=== PATIENT | male | born 1980 | race Caucasian/White ===

== ENCOUNTER 2023-08-25 11:59 | Observation (INO) | payer SELFPAY ==
[2023-08-25] VITALS (22 sets, daily range): BP systolic 84–117; BP diastolic 43–72; PULSE 65–83; RESP 14–20; TEMP 36.4–37; O2SAT 92–99; BMI 25.8
--- NOTE | 2023-08-25 12:24 | ED.GENADUL_ITS ---
Discharge Plan Disposition Patient Disposition: Admit to [facility] Condition: Stable Discharge Details Clinical Impression: Appendicitis Primary Care Provider: Sarah Beth Lisa ED Provider: Adriane Rueda Home Meds and New Rx's Prescriptions: No Action famotidine [Acid Controller] 20 mg tablet 20 mg PO DAILY HPI General Date/Time Provider Initiated Documentation: 08/25/23 12:14 . HPI Narrative: Tyler is a 43-year-old male who presents to the emergency department today for evaluation of abdominal pain. He reports he started with a burning/pressure pain in his epigastrium that woke him up in the melanite, has since migrated down to his lower abdomen/lower back, radiating into his right testicle. He has vomited once. He denies fever/chills, change in bowel movements, black/tarry stools, change in urine output (though urine is darker than usual), hematuria, penile discharge, swelling/pain in testicles. No history of abdominal surgery. He is a smoker, denies history of hypertension or cardiac disease. No recent sexual activity or new sexual partners. Related Data Home Medications Medication Instructions Recorded Confirmed famotidine 20 mg tablet (Acid 20 mg PO DAILY 08/25/23 08/25/23 Controller) Allergies Allergy/AdvReac Type Severity Reaction Status Date / Time bee venom protein (honey bee) Allergy Intermediate Hives Unverified 08/25/23 12:22 General Stated Complaint: Abd Prob JONAS: 3 Review of Systems Narrative: see HPI Exam Const General: cooperative GI Inspection: normal to inspection, no abdominal wall ecchymosis, non-distended, no visible herniation and no visible pulsation Palpation: soft, no hernias, no masses and tender in the RLQ and suprapubicly Auscultation: normal bowel sounds Male General Exam: Yes normal external exam, No ecchymosis, No edema, No erythema, No hernia, No inguinal lymphadenopathy, No lacerations, No lesions, No perineal induration and No tenderness Penis: normal penis Testes: normal, testicular lie normal, epididymides normal and not enlarged Course Vital Signs Vital signs: Vital Signs Temperature 37.0 C 08/25/23 12:04 Pulse 78 08/25/23 12:04 Respiratory Rate 18 08/25/23 12:04 Blood Pressure 117/72 08/25/23 12:04 Pulse Oximetry 99 08/25/23 12:04 Temperature 37.0 C 08/25/23 12:13 Temperature Source Skin 08/25/23 12:13 Pulse 78 08/25/23 12:13 Respiratory Rate 18 08/25/23 12:13 Respiratory Effort Normal 08/25/23 12:06 Blood Pressure 117/72 08/25/23 12:13 Blood Pressure Position Sitting 08/25/23 12:13 Pulse Oximetry 99 08/25/23 12:13 Oxygen Delivery Method Room Air 08/25/23 12:13 Oxygen Flow Rate 0 08/25/23 12:04 Medical Decision Making Tyler is a 43-year-old male who presents to the emergency department today for evaluation of abdominal pain. He reports he started with a burning/pressure pain in his epigastrium that woke him up in the melanite, has since migrated down to his lower abdomen/lower back, radiating into his right testicle. He has vomited once. He denies fever/chills, change in bowel movements, black/tarry stools, change in urine output (though urine is darker than usual), hematuria, penile discharge, swelling/pain in testicles. No history of abdominal surgery. He is a smoker, denies history of hypertension or cardiac disease. No recent sexual activity or new sexual partners. Physical exam remarkable for uncomfortable patient, writhing on stretcher during exam holding testicles. Abdomen is soft, nondistended, exquisitely tender to palpation in the right lower quadrant, with moderate tenderness to suprapubic area. No redness/swelling/pain with palpation of testicles. He reports testicles appear normal to him. Easy work of breathing, lung sounds clear bilaterally. Normal heart sounds. Moving all extremities equally. DDx includes but is not limited to: Appendicitis, diverticulitis, hernia, nephrolithiasis, cystitis, less likely testicular torsion based on abdominal tenderness with palpation rather than testicular pain I independently interpreted the following tests: CBC remarkable for leukocytosis with white cell count 18.38. CMP reassuring. UA unremarkable. CT abd/pelvis unremarkable for appendicitis, no abscess or free air. While in the emergency department Tyler received IV fluids, 0.5 mg Dilaudid for pain control, with good relief of pain. IV fluids going at 125 an hour for maintenance of hydration. Metronidazole and ceftriaxone given for appendicitis. Discussed case with Dr. Mckeon, [facility] general surgery; she has been to bedside to evaluate pt. Patient to be admitted for management of appendicitis via OR this afternoon. Imaging Data Radiologic Study: Radiologist's impression: Exam(s) CT ABDOMEN PELVIS W EXAM: CT ABDOMEN PELVIS W CLINICAL HISTORY: Abdominal pain, TTP RLQ, radiating to R testicle TECHNIQUE: Imaging Protocol: Axial computed tomography images with coronal and sagittal reformatted images were created and reviewed. CONTRAST MATERIAL: Intravenous: Omnipaque 350 Contrast volume:100 mL Oral: No COMPARISON: No exams were available for comparison FINDINGS: ABDOMEN: Lung Bases: Normal where visualized. Liver: Normal density. No measurable mass. Portal, Superior Mesenteric, and Splenic Veins: Unremarkable. Gallbladder and Biliary Tract: No radiodense calculus or dilation. Pancreas: Normal density, no abnormal calcifications or inflammatory process. Spleen: Normal. Adrenals: No masses seen. Kidneys: Normal size, contour and axis. There is a nonobstructing 2 mm stone in the lower pole of the left kidney. There is a simple cyst in the right kidney. No follow-up is recommended. Abdominal Aorta: Abdominal portion non-dilated. Atherosclerotic calcification is present. Bowel: No obstruction or bowel wall thickening. The appendix measures 1 cm in diameter with an enhancing wall. There is inflammation around the appendix. No evidence of an abscess or free air. No appendicoliths is present. The findings are consistent with acute appendicitis. Peritoneal Cavity: No ascites, collection or mesenteric inflammatory response. No free air. Lymph Nodes: Within normal limits. Bones: Within normal limits for the patient's age. Soft Tissues: Unremarkable. PELVIS: Bladder: Symmetric distention, no gross wall thickening. Reproductive Organs: Unremarkable as visualized. Lymph Nodes: Within normal limits. Bones: Within normal limits for the patient's age. IMPRESSION: 1. Findings of acute appendicitis. No abscess or free air. 2. Left nephrolithiasis. No obstructive uropathy. 3. Findings were discussed with Adriane Meek at 2:14 p.m. on 08/25/2023. Lab Data Labs: Laboratory Tests Range/Units 08/25/23 08/25/23 12:31 13:36 WBC (4.4-10.8) 10^3/uL 18.38 H RBC (4.36-5.78) 10^6/uL 5.06 Hgb (13.5-17.5) g/dL 15.4 Hct (40.0-50.0) % 43.1 MCV (80-95) fL 85 MCH (27.0-33.0) pg 30.4 MCHC (32.0-36.0) % 35.7 RDW (11.8-14.1) % 12.9 Plt Count (130-400) 10^3/uL 354 MPV (8.0-11.0) fL 9.0 Immature Gran % 0.5 Neutrophils % 82.5 Lymphocytes % 7.0 Monocytes % 9.4 Eosinophils % 0.2 Basophils % 0.4 Nucleated RBC % (0.0-0.3) % 0.0 Absolute Neutrophils (1.2-6.7) 10^3/uL 15.16 H Absolute Lymphocytes (1.2-3.4) 10^3/uL 1.29 Absolute Monocytes (0.1-0.8) 10^3/uL 1.73 H Absolute Eosinophils (0.0-0.7) 10^3/uL 0.04 Absolute Basophils (0.0-0.2) 10^3/uL 0.07 RBC Morphology Normal Sodium (136-145) mmol/L 139 Potassium (3.5-5.1) mmol/L 3.5 Chloride (98-107) mmol/L 102 Carbon Dioxide (21.0-32.0) mmol/L 28.1 Anion Gap (3-11) mmol/L 8.9 BUN (7-18) mg/dL 9 Creatinine (0.70-1.30) mg/dL 1.2 Est GFR (CKD-EPI 2020) (mL/min/1.73m2) 76.95 Glucose (74-106) mg/dL 121 H Calcium (8.5-10.1) mg/dL 9.5 Total Bilirubin (0.2-1.0) mg/dL 0.6 AST (15-37) U/L 15 ALT (16-63) U/L 29 Alkaline Phosphatase (46-116) U/L 68 Total Protein (6.4-8.2) g/dL 7.6 Albumin (3.4-5.0) g/dL 4.2 Urine Color (Yellow) Yellow Urine Clarity (Clear) Clear Urine pH (5-8) 8.5 H Ur Specific [place] (1.005-1.025) 1.015 Urine Protein (Neg-Trace) mg/dL Negative Urine Ketones (Negative) mg/dL Negative Urine Blood (Negative) Negative Urine Nitrite (Negative) Negative Urine Bilirubin (Negative) Negative Urine Urobilinogen (Up to 0.2) mg/dL 0.2 Ur Leukocyte Esterase (Negative) Negative Urine Glucose (Negative) mg/dL Negative Quality:SDOH Health Related Social Needs: No Data to Display PFSH All Active Problems (Updated 08/25/23 @ 15:06 by Adriane Harrell) Appendicitis (Acute) Social History Smoking/Tobacco Use Status: Current every day Tobacco Type: cigarettes Smoking risk assessment performed?: Yes Alcohol Intake: current Alcohol Intake frequency: a few times a month Substance use type: does not use
[2023-08-25 12:38] LABS: Abs Immature Grans 0.09 10^3/uL (0.0-0.06); Absolute Basophil Count 0.07 10^3/uL (0.0-0.2); Absolute Eosinophil Count 0.04 10^3/uL (0.0-0.7); Basophils % 0.4; Eosinophils % 0.2; HCT 43.1 % (40.0-50.0); HGB 15.4 g/dL (13.5-17.5); Immature Grans % 0.5; MCH 30.4 pg (27.0-33.0); MCHC 35.7 % (32.0-36.0); MCV 85 fL (80-95); Monocytes % 9.4; Neutrophils % 82.5; Platelet Count 354 10^3/uL (130-400); RBC 5.06 10^6/uL (4.36-5.78); RDW 12.9 % (11.8-14.1); RDW-SD 39.8 fL; WBC 18.38 10^3/uL (4.4-10.8)
[2023-08-25] MEDS: Normal Saline 1,000 ML 1000 ML IV (12:38)
[2023-08-25] MEDS: HYDROmorphone 2 MG/ML SYR 0.5 MG IVP ×2 (12:39→14:29)
[2023-08-25 12:40] LABS: Absolute Lymphocyte Count 1.29 10^3/uL (1.2-3.4); Absolute Monocyte Count 1.73 10^3/uL (0.1-0.8); Absolute Neutrophil Count 15.16 10^3/uL (1.2-6.7)
[2023-08-25 12:51] LABS: ALT 29 U/L (16-63); AST 15 U/L (15-37); Albumin 4.2 g/dL (3.4-5.0); Alkaline Phosphatase 68 U/L (46-116); Anion Gap 8.9 mmol/L (3-11); BUN 9 mg/dL (7-18); Bilirubin, Total 0.6 mg/dL (0.2-1.0); CO2 28.1 mmol/L (21.0-32.0); CREATININE 1.2 mg/dL (0.70-1.30); Calcium 9.5 mg/dL (8.5-10.1); Chloride 102 mmol/L (98-107); Estimated GFR 76.95 (mL/min/1.73m2); Glucose 121 mg/dL (74-106); Potassium 3.5 mmol/L (3.5-5.1); Sodium 139 mmol/L (136-145); Total Protein 7.6 g/dL (6.4-8.2)
[2023-08-25 12:52] LABS: Diff Comment Agrees w/ Instrument; RBC Morphology Normal
[2023-08-25 13:45] LABS: Bilirubin Negative (Negative); Blood Negative (Negative); Clarity Clear (Clear); Glucose Negative (Negative); Ketones Negative (Negative); Leukocyte Esterase Negative (Negative); Nitrite Negative (Negative); Specific Gravity 1.015 (1.005-1.025); Urobilinogen 0.2 mg/dL (Up to 0.2); pH 8.5 (5-8)
[2023-08-25] MEDS: Omnipaque 350 MG/ML 100 ML BTL IJ (13:51)
[2023-08-25] MEDS: Normal Saline - Diluent 50 ML VIAL IJ (13:52)
[2023-08-25] MEDS: Normal Saline Flush 10 ML SYR IVP ×2 (13:52→21:51)
--- NOTE | 2023-08-25 13:56 | DI.CT_ITS ---
Exam(s) CT ABDOMEN PELVIS W EXAM: CT ABDOMEN PELVIS W CLINICAL HISTORY: Abdominal pain, TTP RLQ, radiating to R testicle TECHNIQUE: Imaging Protocol: Axial computed tomography images with coronal and sagittal reformatted images were created and reviewed. CONTRAST MATERIAL: Intravenous: Omnipaque 350 Contrast volume:100 mL Oral: No COMPARISON: No exams were available for comparison FINDINGS: ABDOMEN: Lung Bases: Normal where visualized. Liver: Normal density. No measurable mass. Portal, Superior Mesenteric, and Splenic Veins: Unremarkable. Gallbladder and Biliary Tract: No radiodense calculus or dilation. Pancreas: Normal density, no abnormal calcifications or inflammatory process. Spleen: Normal. Adrenals: No masses seen. Kidneys: Normal size, contour and axis. There is a nonobstructing 2 mm stone in the lower pole of the left kidney. There is a simple cyst in the right kidney. No follow-up is recommended. Abdominal Aorta: Abdominal portion non-dilated. Atherosclerotic calcification is present. Bowel: No obstruction or bowel wall thickening. The appendix measures 1 cm in diameter with an enhanc ing wall. There is inflammation around the appendix. No evidence of an abscess or free air. No preeti endicoliths is present. The findings are consistent with acute appendicitis. Peritoneal Cavity: No ascites, collection or mesenteric inflammatory response. No free air. Lymph Nodes: Within normal limits. Bones: Within normal limits for the patient's age. Soft Tissues: Unremarkable. PELVIS: Bladder: Symmetric distention, no gross wall thickening. Reproductive Organs: Unremarkable as visualized. Lymph Nodes: Within normal limits. Bones: Within normal limits for the patient's age. IMPRESSION: 1. Findings of acute appendicitis. No abscess or free air. 2. Left nephrolithiasis. No obstructive uropathy. 3. Findings were discussed with Adriane Meek at 2:14 p.m. on 08/25/2023. RADIATION DOSE DELIVERED: 953.68mGy.cm Total DLP DATA REPOSITORY: All CT scans at this facility are submitted to the National Radiology Data Registry (NRDR) Dose Index Registry (DIR) with the [employer] (ACR). RADIATION OPTIMIZATION: All CT scans at this facility use at least one of these dose optimization te chniques: automated exposure control; mA and/or kV adjustment per patient size (includes targeted exa ms where dose is matched to clinical indication); or iterative reconstruction.
[2023-08-25] MEDS: cefTRIAXone 1 GM/50 ML BAG IVPB (14:31)
[2023-08-25] MEDS: metroNIDAZOLE 500 MG/100 ML BAG 100 MG IVPB ×2 (14:32→21:50)
--- NOTE | 2023-08-25 15:38 | ANES.PREOP_ITS ---
General Info Date of Service Date Performed: 08/25/23 Height: 5 ft 9 in Weight: 79.379 kg Body Mass Index (BMI): 25.8 Surgical Procedure: Operation Date: 08/25/23 16:10 Proposed Procedure Side Surgeon p Appendectomy Laparoscopic Licha Mckeon DO Meds Allergies and Home Medications Allergies Allergy/AdvReac Type Severity Reaction Status Date / Time bee venom protein (honey bee) Allergy Intermediate Hives Unverified 08/25/23 12:22 Home Medication Medication Instructions Recorded famotidine 20 mg tablet (Acid 20 mg PO DAILY 08/25/23 Controller) Current Visit Medications: Current Medications Generic Name Dose Route Start Last Admin Trade Name Freq PRN Reason Stop Dose Admin Hydromorphone HCl 0.5 mg 08/25/23 14:20 08/25/23 14:29 Hydromorphone 2 Mg/Ml Syr IVP 0.5 mg Q4H PRN PRN Administration Metronidazole 500 mg in 100 mls @ 100 mls/hr 08/25/23 14:30 08/25/23 14:32 Flagyl IVPB 100 mls/hr Q6H PHILLIP Administration Sodium Chloride 1,000 mls @ 125 mls/hr 08/25/23 14:30 Saline 1000ml Bag IV INFUSION PHILLIP IV Miscellaneous Supplies 1 each 08/25/23 12:30 Iv Access-Emergency Dept IV DIRECTED PHILLIP Iohexol 100 ml 08/25/23 14:00 08/25/23 13:51 Omnipaque 350 Mg/Ml 100 Ml Btl IJ 09/24/23 23:59 100 ml DIRECTED PHILLIP Administration Sodium Chloride 0 ml 08/25/23 12:21 08/25/23 13:52 Normal Saline Flush 10 Ml Syr IVP 10 ml PRN PRN Administration Sodium Chloride 0 ml 08/25/23 20:00 Normal Saline Flush 10 Ml Syr IVP BID PHILLIP Sodium Chloride 0 ml 08/25/23 12:21 Normal Saline 10 Ml Vial IJ DIRECTED PRN Sodium Chloride 50 ml 08/25/23 14:00 08/25/23 13:52 Normal Saline - Diluent 50 Ml Vial IJ 50 ml .FOR DI USE PHILLIP Administration PFSH Active Problems Active Problems: Problem Status Onset Code Appendicitis K37 Tobacco Smoking/Tobacco Use Status: Current every day Tobacco Type: cigarettes Alcohol Alcohol Intake: current Alcohol intake frequency: a few times a month Substance Use Substance use type: does not use Vital Signs and Lab Results Vital Signs Most Recent Vital Signs in EMR: Most Recent Vital Signs Temp Pulse Resp BP Pulse Ox 37.0 C 67 18 84/52 L 94 08/25/23 12:13 08/25/23 15:31 08/25/23 12:13 08/25/23 15:31 08/25/23 15:31 Lab Results 08/25/23 12:31 08/25/23 12:31 Blood Type / Crossmatch: 2 No Data to Display Complete Blood Count: 2 White Blood Count 18.38 10^3/uL (4.4-10.8) H 08/25/23 12:31 Red Blood Count 5.06 10^6/uL (4.36-5.78) 08/25/23 12:31 Hemoglobin 15.4 g/dL (13.5-17.5) 08/25/23 12:31 Hematocrit 43.1 % (40.0-50.0) 08/25/23 12:31 Platelet Count 354 10^3/uL (130-400) 08/25/23 12:31 Complete Metabolic Panel: 2 Sodium 139 mmol/L (136-145) 08/25/23 12:31 Potassium 3.5 mmol/L (3.5-5.1) 08/25/23 12:31 Chloride 102 mmol/L (98-107) 08/25/23 12:31 Carbon Dioxide 28.1 mmol/L (21.0-32.0) 08/25/23 12:31 BUN 9 mg/dL (7-18) 08/25/23 12:31 Creatinine 1.2 mg/dL (0.70-1.30) 08/25/23 12:31 Est GFR (CKD-EPI 2020) 76.95 (mL/min/1.73m2) 08/25/23 12:31 Calcium 9.5 mg/dL (8.5-10.1) 08/25/23 12:31 Albumin 4.2 g/dL (3.4-5.0) 08/25/23 12:31 Glucose 121 mg/dL (74-106) H 08/25/23 12:31 Liver Function Panel: 2 Alanine Aminotransferase (ALT/SGPT) 29 U/L (16-63) 08/25/23 12: 31 Aspartate Amino Transf (AST/SGOT) 15 U/L (15-37) 08/25/23 12:31 Coagulation Panel: 2 No Data to Display Cardiac Panel: 2 No Data to Display Arterial Blood Gas: 2 No Data to Display Venous Blood Gas: 2 No Data to Display Pancreas Panel: 2 No Data to Display Thyroid Panel: 2 No Data to Display Infectious Disease: 2 No Data to Display Blood Cultures: 2 No Data to Display Toxicology Panel: 2 No Data to Display Anesthesia Assessment and Plan Anesthesia History Personal History: No History of Anesthesia Complications Family History: No Family History of Anesthesia Complications Exercise Tolerance Exercise Tolerance: Metabolic Equivalents>4 Cardiac & Pulmonary Exam Cardiac Exam: Normal S1/S2 Heart Sounds Pulmonary Exam: Clear Bilateral Breath Sounds Implantable Cardiac Device Does patient have a Pacemaker or an ICD?: No Airway Exam Known Difficult Airway: No Mallampati Class: 4 Mouth Opening: Narrow (< 3cm) Thyromental Distance: Less than 3 cm Neck Range of Motion: Full ROM Neck Circumference: Normal Teeth Condition: Generalized Poor Dentition and Removable Dentures/Plates Upper ASA Classification ASA Score: ASA 2 Emergency Case?: Yes NPO Status NPO Status: NPO Clears >2 hours, Solids >8 hours Anesthesia Plan Resuscitation Status: Full Code Anesthesia Technique: General Anesthesia Airway Planned: Endotracheal Tube Monitors Used: Standard Monitors Preoperative Comments:: 43 yo male for lap appy. Currently in the ED, CT with acute appendicitis. Sig PMHx: GERD (on meds), smoker. Has received metronidazole/ceftriaxone/hydromorphone @ ~ 1430. Has not has acetaminophen or NSAIDS in 6 hrs.
--- NOTE | 2023-08-25 15:56 | W.PM.HP.N ---
Date of service: 08/25/23 Time of Service: 15:57 Assessment and Plan Assessment and plan (1) Appendicitis: Status: Acute Assessment and plan: 1. Patient history and physical examination are consistent with acute appendicitis. Currently the patient is hemodynamically stable. We discussed operative versus nonoperative options. The patient elected for laparoscopic appendectomy. The risk and benefits of procedure were explained to the patient. Informed consent was obtained and placed on the chart. Admit for observation Preoperative antibiotics Proceed to the OR for History of Present Illness History of Present Illness Chief Complaint: Abdominal pain Narrative: This patient is a pleasant 43-year-old male. He presents emergency department with complaints of acute onset of epigastric abdominal pain associated with nausea and vomiting. Patient states that the abdominal pain began in the middle the night. The patient notes that the pain has now localized to right lower quadrant. He confirms that in right emergency department the bumps in the road increase his pain. The patient denies any relieving factors. Last bowel movement was today. In the emergency department blood work demonstrated leukocytosis of 18,000. CT scan was highly suspicious for acute appendicitis. On physical examination the patient had exquisite tenderness with palpation and percussion in the right lower quadrant. Patient denies any prior abdominal surgeries. He denies using any blood thinners at home. He admits to half pack tobacco use daily for approximately 20 years. Review of Systems Constitutional Constitutional: Reports as per HPI, Reports lethargy and Reports malaise Gastrointestinal Gastrointestinal: Reports as per HPI, Reports abdominal pain and Reports vomiting PFSH All Active Problems Appendicitis (Acute) Social History Smoking/Tobacco Use Status: Current every day Tobacco Type: cigarettes Smoking risk assessment performed?: Yes Alcohol Intake: current Alcohol Intake frequency: a few times a month Substance use type: does not use Meds Allergies and Home Medications Allergies Allergy/AdvReac Type Severity Reaction Status Date / Time bee venom protein (honey bee) Allergy Intermediate Hives Unverified 08/25/23 12:22 Home Medications Medication Instructions Recorded Confirmed Type famotidine 20 mg tablet (Acid 20 mg PO DAILY 08/25/23 08/25/23 History Controller) Exam Const General: cooperative, healthy appearing and well developed Nutritional Appearance: average body habitus Orientation: alert, awake and oriented x3 Eyes General: appearance normal, both eyes and all related structures Sclera: sclerae normal Resp Effort & Inspection: normal respiratory effort and able to speak in complete sentences Auscultation: clear to auscultation bilaterally Cardio Rate: regular rate Heart Sounds: S1 normal and S2 normal GI Inspection: normal to inspection Palpation: soft and tender in the RLQ and with rebound tenderness Auscultation: hypoactive bowel sounds Skin Lesions: no lesions Rashes: no rashes Results Labs 08/25/23 12:31 08/25/23 12:31 Labs: Laboratory Results - last 24 hr 08/25/23 08/25/23 12:31 13:36 WBC 18.38 H RBC 5.06 Hgb 15.4 Hct 43.1 MCV 85 MCH 30.4 MCHC 35.7 RDW 12.9 Plt Count 354 MPV 9.0 Immature Gran % 0.5 Neutrophils % 82.5 Lymphocytes % 7.0 Monocytes % 9.4 Eosinophils % 0.2 Basophils % 0.4 Nucleated RBC % 0.0 Absolute Neutrophils 15.16 H Absolute Lymphocytes 1.29 Absolute Monocytes 1.73 H Absolute Eosinophils 0.04 Absolute Basophils 0.07 RBC Morphology Normal Sodium 139 Potassium 3.5 Chloride 102 Carbon Dioxide 28.1 Anion Gap 8.9 BUN 9 Creatinine 1.2 Est GFR (CKD-EPI 2020) 76.95 Glucose 121 H Calcium 9.5 Total Bilirubin 0.6 AST 15 ALT 29 Alkaline Phosphatase 68 Total Protein 7.6 Albumin 4.2 Urine Color Yellow Urine Clarity Clear Urine pH 8.5 H Ur Specific [place] 1.015 Urine Protein Negative Urine Ketones Negative Urine Blood Negative Urine Nitrite Negative Urine Bilirubin Negative Urine Urobilinogen 0.2 Ur Leukocyte Esterase Negative Urine Glucose Negative Last Vital Signs Temp 98.6 F 08/25/23 15:38 Pulse 69 08/25/23 15:47 Resp 18 08/25/23 15:38 BP 93/58 L 08/25/23 15:47 Pulse Ox 96 08/25/23 15:50 Time Spent Time spent with Patient: 40-54 minutes Time was spent: preparing to see the patient(eg.review tests), obtaining and/or reviewing separately otained hiistory, ordering medications,tests, procedures, referring, communicating with other health emergency care tech and counseling the patient
[2023-08-25] MEDS: Lactated Ringers 1,000 ML 30 ML IV (16:10)
[2023-08-25] MEDS: Enoxaparin 40 MG/0.4 ML SYR SC (16:35)
[2023-08-25] MEDS: Cellulose,Oxidized 4X8 1 PACKET MC (17:30)
[2023-08-25] MEDS: Bupivacaine 0.25% Pres-Free 30 ML VIAL (18:00)
--- NOTE | 2023-08-25 18:14 | W.PM.OP ---
Date of service: 08/25/23 Time of Service: 18:14 Operative Note Operative Note DATE OF PROCEDURE: 08/25/23 PRE-OP DIAGNOSIS: Acute appendicitis POST-OP DIAGNOSIS: same PROCEDURE: Laparoscopic appendectomy Control of hemorrhage from mesentery of the appendix SURGEON: Licha Mckeon ANESTHESIA TYPE: General LMA/ETT Refer to Anesthesia Record ESTIMATED BLOOD LOSS: 100 COMPLICATIONS: Other (Bleeding from the mesoappendix mesentery) Patient was transported to: PACU Patient's condition: stable Indications: Patient is a 43-year-old male who presented with signs and symptoms of acute appendicitis. After complete history and physical examination was performed laparoscopic appendectomy possible open conversion was recommended. The risk and benefits of procedure were explained to the patient. Informed consent was obtained and placed on the chart. Findings: Acutely inflamed appendix in the right lower quadrant of the abdomen Procedure Description: The patient was brought to the operating room where he was placed on operating table in the supine position. After adequate general endotracheal anesthesia was administered by department of anesthesia, preoperative antibiotics were administered. The abdomen was prepped and draped in standard sterile fashion. A timeout was performed to confirm the site of surgery. Using #15 blade scalpel an infraumbilical incision was made. Mini laparotomy technique was used to gain entry into the peritoneal cavity. A 10 mm trocar was placed through the incision. The abdomen was insufflated to a pressure of 10 to 15 mmHg. A 10 mm, 0 degree laparoscope was inserted into the peritoneal cavity. Upon primary survey of the abdomen there is no apparent injury from trocar insertion. Under direct visualization a 10-12 mm trocar was placed in the left upper quadrant of the abdomen. A 5 mm trocar was placed in the left lower quadrant of the abdomen. The patient was repositioned in Trendelenburg with the right side up. Blunt graspers were introduced. Attention was then turned to the right lower quadrant of the abdomen. An Acutely inflamed appendix was visualized in the right lower quadrant of the abdomen. Blunt graspers were used to grasp and elevate the appendix. Maryland dissector was then used to create a window between the appendix and the mesoappendix. The LigaSure was then used to grasp the mesoappendix, seal it with heat and divide it, however when the instrument was closed on the mesoappendix it divided a portion of the mesoappendix without heat coagulation. There was what appeared to be arterial bleeding. The vessel was further dissected with a Maryland dissector. The distal portion of the vessel was grasped with the LigaSure and coagulated. Copious suction and irrigation was undertaken. Surgicel with a Ray-Chanell was placed at the base of the mesentery where the bleeding occurred. Pressure was held for 2 to 3 minutes. Surgicel and Ray-Chanell were removed. There was no evidence of ongoing bleeding. Suction and irrigation was continued. Excess irrigation and blood was suctioned from the pelvis. Attention was then returned to the mesoappendix. There was a small hematoma which was not removed. Again there is no evidence of active bleeding. Arnaldo was placed at the site of the previous bleeding. Surgicel was placed on top of that. Pressure was held. The appendix was divided off of the base of the cecum using 1 firing of the Endo RASHEL stapler. The appendix was placed in an Endo Catch bag and retrieved from the peritoneal cavity. A number 10. Matias-Silva drain was placed in the pelvis with the tip of the drain in the right lower quadrant of the abdomen. The drain was brought out through the left lower quadrant 5 mm port site. The patient was then returned to neutral position. Trocars were removed under direct visualization. There was no evidence of bleeding from the trocar sites. The abdomen was then completely desufflated. The skin incisions were anesthetized with local anesthetic. The the fascia of the port sites greater than 5 mm were reapproximated using 0 Vicryl with [id number] stitch. Skin edges were reapproximated using 4-0 Vicryl with a running subcuticular stitch. The skin was then cleaned and dried. Sterile dressings were applied. Patient tolerated procedure well was returned to PACU in stable condition..
--- NOTE | 2023-08-25 18:41 | W.ANESPOSTOP ---
Postoperative Evaluation Date, Time and Location Date Performed: 08/25/23 Time Performed: 18:41 Patient Location: PACU Vital Signs Most Recent Imported Vital Signs: Most Recent Vital Signs Temp Pulse Resp BP Pulse Ox 36.5 C 76 14 87/59 L 97 08/25/23 18:27 08/25/23 18:27 08/25/23 18:27 08/25/23 18:27 08/25/23 18:27 Pain Score Most Recent Pain Score: Most Recent Pain Score Pain Level 8 08/25/23 15:38 Assessment Mental Status: Arousable with meaningful communication Airway and Respiratory Function: Patent airway with normal (patient baseline) respiratory exam Cardiovascular Function: Hemodynamically Stable Hydration Status: Adequately Hydrated Nausea & Vomiting: No Nausea or Vomiting Pain: Pain is tolerable per patient Peripheral Nerve Block: Patient did not receive a nerve block
[2023-08-25 19:41] LABS: HCT 37.7 % (40.0-50.0); HGB 13.5 g/dL (13.5-17.5); MCHC 35.8 % (32.0-36.0); MCV 87 fL (80-95); MPV 9.2 fL (8.0-11.0); Platelet Count 283 10^3/uL (130-400); RBC 4.36 10^6/uL (4.36-5.78); RDW-SD 41.1 fL; WBC 14.83 10^3/uL (4.4-10.8)
[2023-08-25] MEDS: Normal Saline 1,000 ML 75 ML IV (21:49)
[2023-08-26 00:26] VITALS: BP 96/50; PULSE 62; RESP 16; TEMP 37; O2SAT 95
[2023-08-26] MEDS: metroNIDAZOLE 500 MG/100 ML BAG 100 MG IVPB ×3 (02:56→15:30)
[2023-08-26] MEDS: Acetaminophen 325 MG TAB 650 MG PO (02:57)
[2023-08-26 03:25] VITALS: BP 96/55; PULSE 60; RESP 18; TEMP 36.5; O2SAT 95
[2023-08-26 07:14] LABS: HCT 34.3 % (40.0-50.0); HGB 12.1 g/dL (13.5-17.5); MCH 30.6 pg (27.0-33.0); MCHC 35.3 % (32.0-36.0); MCV 87 fL (80-95); MPV 9.7 fL (8.0-11.0); Platelet Count 275 10^3/uL (130-400); RBC 3.95 10^6/uL (4.36-5.78); RDW 12.9 % (11.8-14.1); RDW-SD 40.8 fL; WBC 12.24 10^3/uL (4.4-10.8)
[2023-08-26 08:05] VITALS: BP 94/52; PULSE 65; RESP 16; TEMP 36.7; O2SAT 96
[2023-08-26] MEDS: Normal Saline Flush 10 ML SYR IVP (08:32)
[2023-08-26] MEDS: Famotidine 20 MG TAB PO (08:33)
--- NOTE | 2023-08-26 08:34 | PDOC.CMIN ---
Date of service: 08/26/23 Time of Service: 08:34 Care Management Initial Assmt Initial Assessment REASON FOR HOSPITALIZATION:: appendicitis PREVIOUS FUNCTIONAL STATUS/SOCIAL/FAMILY SUPPORTS:: Tyler lives in [place], [place]. Tyler is single however he has 2 children, one of whom lives with him. He works for [employer] by [employer] in [place], [place] which is an [employer] company. Tyler is independent at baseline and does not receive any services. CURRENT FUNCTIONAL STATUS:: Tyler was sitting up in bed when CM met with his. He was polite and cooperative with conversation. Tyler stated that he is feeling pretty good and anticipates being discharged later today. He denied the need for any services. Tyler has a drain in place however his mother stated that she would help with its care if he is discharged with it. ADVANCE DIRECTIVES:: none on file Has patient been provided with info about the portal/API?: No Did the patient sign up for the portal?: No CODE STATUS:: Full Code INSURANCE COVERAGE / FINANCIAL ISSUES:: APR PRIMARY CARE PHYSICIAN:: Sarah Beth Lisa POTENTIAL DISCHARGE NEEDS:: follow up with PCP and plan of care PATIENT/FAMILY EDUCATION NEEDS:: Review of discharge instructions, activity, limitations, follow up plan, discuss Ask Me Three TRANSPORTATION:: via private vehicle with family PLAN:: Anticipate that Tyler will be discharged home with no new services. His mother will stay with him for a few days while he recuperates. He will follow up with his surgeon locally and PCP and plan of care and transport with family. CM will follow and continue to assess for discharge needs. PFSH All Active Problems (Updated 08/26/23 @ 08:45 by Licha Mckeon DO) Intraoperative hemorrhage (Acute) Appendicitis (Acute) Social History Smoking/Tobacco Use Status: Current every day Tobacco Type: cigarettes Smoking risk assessment performed?: Yes Alcohol Intake: current Alcohol Intake frequency: a few times a month Substance use type: does not use Housing: house SDOH(Care Management) Screening Will the Patient Participate in the Screening?: Yes Do you worry about having a steady place to live?: no Problems where you live: no known problems In the past 12 months, have you had to go without electric, gas, oil or water in your home?: no Have you or anyone in your house had to go without enough food to eat?: no Has lack of transportation kept you from medical appointments or from doing things needed for daily living?: no Has anyone in your support network made you feel unsafe for any reason?: no
--- NOTE | 2023-08-26 08:38 | PGE_ITS ---
Date of Service Date of service: 08/26/23 Time of Service: 08:38 Assessment and Plan Assessment and plan (1) Intraoperative hemorrhage: Status: Acute Assessment and plan: patient is hemodynamically stable. will continue to monitor ck h/h at 2pm Qualifiers: Procedure type: non-splenic (2) Appendicitis: Status: Acute Assessment and plan: increase activity level with assistance clear liquid diet Qualifiers: Appendicitis type: acute appendicitis Acute appendicitis type: with localized peritonitis Appendicitis gangrene presence: without gangrene Appendicitis perforation presence: without perforation Appendicitis abscess presence: without abscess Qualified Code(s): K35.30 - Acute appendicitis with localized peritonitis, without perforation or gangrene Subjective Subjective Interval history since last seen: patient seen and examined. resting in bed. no acute events overnight. denies cp, sob or dizziness. pain level is 3 -4. Exam Const General: cooperative, no acute distress and well developed Nutritional Appearance: average body habitus GI Palpation: soft Other: appropriate postop tenderness, KARTIK with bloody drainage. approximately 20cc in drain. incisions intact Objective Last Vital Signs Temp 98.1 F 08/26/23 08:05 Pulse 65 08/26/23 08:05 Resp 16 08/26/23 08:05 BP 94/52 L 08/26/23 08:05 Pulse Ox 96 08/26/23 08:05 Laboratory Results - last 24 hr 08/25/23 08/25/23 08/25/23 12:31 13:36 19:34 WBC 18.38 H 14.83 H RBC 5.06 4.36 Hgb 15.4 13.5 Hct 43.1 37.7 L MCV 85 87 MCH 30.4 31.0 MCHC 35.7 35.8 RDW 12.9 13.0 Plt Count 354 283 MPV 9.0 9.2 Immature Gran % 0.5 Neutrophils % 82.5 Lymphocytes % 7.0 Monocytes % 9.4 Eosinophils % 0.2 Basophils % 0.4 Nucleated RBC % 0.0 Absolute Neutrophils 15.16 H Absolute Lymphocytes 1.29 Absolute Monocytes 1.73 H Absolute Eosinophils 0.04 Absolute Basophils 0.07 RBC Morphology Normal Sodium 139 Potassium 3.5 Chloride 102 Carbon Dioxide 28.1 Anion Gap 8.9 BUN 9 Creatinine 1.2 Est GFR (CKD-EPI 2020) 76.95 Glucose 121 H Calcium 9.5 Total Bilirubin 0.6 AST 15 ALT 29 Alkaline Phosphatase 68 Total Protein 7.6 Albumin 4.2 Urine Color Yellow Urine Clarity Clear Urine pH 8.5 H Ur Specific [place] 1.015 Urine Protein Negative Urine Ketones Negative Urine Blood Negative Urine Nitrite Negative Urine Bilirubin Negative Urine Urobilinogen 0.2 Ur Leukocyte Esterase Negative Urine Glucose Negative 08/26/23 06:44 WBC 12.24 H RBC 3.95 L Hgb 12.1 L Hct 34.3 L MCV 87 MCH 30.6 MCHC 35.3 RDW 12.9 Plt Count 275 MPV 9.7 Immature Gran % Neutrophils % Lymphocytes % Monocytes % Eosinophils % Basophils % Nucleated RBC % Absolute Neutrophils Absolute Lymphocytes Absolute Monocytes Absolute Eosinophils Absolute Basophils RBC Morphology Sodium Potassium Chloride Carbon Dioxide Anion Gap BUN Creatinine Est GFR (CKD-EPI 2020) Glucose Calcium Total Bilirubin AST ALT Alkaline Phosphatase Total Protein Albumin Urine Color Urine Clarity Urine pH Ur Specific [place] Urine Protein Urine Ketones Urine Blood Urine Nitrite Urine Bilirubin Urine Urobilinogen Ur Leukocyte Esterase Urine Glucose Time Spent with Patient Time Spent with Patient: 25-34 minutes Time was spent: preparing to see the patient(eg.review tests), obtaining and/or reviewing separately otained hiistory, ordering medications,tests, procedures and counseling the patient
[2023-08-26] MEDS: HYDROmorphone 2 MG/ML SYR 1 MG IVP ×2 (10:07→16:13)
--- NOTE | 2023-08-26 10:33 | PHA.REVIEW2 ---
Pharmacy Admission Review Admission Clinical Review Admission Pharmacy Review: Intraoperative hemorrhage (Acute) Appendicitis (Acute) bee venom protein (honey bee) Allergy (Intermediate, Unverified 08/25/23 12:22) Hives Resuscitation Status Full Code Height 5 ft 9 in Weight 79.746 kg Pharmacy Admission Review Renal Dosing Renal Dosing: BUN 9 mg/dL (7-18) 08/25/23 12:31 Creatinine 1.2 mg/dL (0.70-1.30) 08/25/23 12:31 Medications needing adjustments: Reviewed (CrCl 89.53 mL/min) Anticoagulation Anticoagulation: Hgb 12.1 g/dL (13.5-17.5) L 08/26/23 06:44 Hct 34.3 % (40.0-50.0) L 08/26/23 06:44 Plt Count 275 10^3/uL (130-400) 08/26/23 06:44 Creatinine 1.2 mg/dL (0.70-1.30) 08/25/23 12:31 DVT Prophylaxis: Reviewed (None at this time, POD #1 appendectomy) Opiate Usage Evaluate Pain Scale/Pains Meds: Reviewed (PRN hydromorphone) Scheduled Bowel Reg ordered if on Opiates?: No Relevant Labs Relevant Labs: Sodium 139 mmol/L (136-145) 08/25/23 12:31 Potassium 3.5 mmol/L (3.5-5.1) 08/25/23 12:31 Chloride 102 mmol/L (98-107) 08/25/23 12:31 Electrolytes, C-Reactive P, ESR: Reviewed (WBC 12.24, Hgb decreased from 13.5 to 12.1 - repeat labs pending) Cardiac Review Cardiac Review: Blood Pressure 94/52 0805 Blood Pressure 96/55 0325 Blood Pressure 96/50 0026 BP, HR, EF%: Reviewed (BP 94/52, HR WNL) QTc Review QTc: Reviewed (No EKG on patients file) IV to PO Switch IV Medications: Reviewed (IV hydromorphone and ondansetron) Home Meds Home Med List reviewed: Reviewed Current Meds Current Medication Order Review: Reviewed Pharmacy Antibiotic Review Pharmacy Antibiotic Activity: Reviewed, no change Comments: Patient is on day 1 of metronidazole 500mg q6h POD #1 from appendectomy. WBC has decreased from 14 to 12.24 with repeat labs pending.
[2023-08-26 11:36] VITALS: BP 94/63; PULSE 66; RESP 14; TEMP 37; O2SAT 95
[2023-08-26 14:06] LABS: HCT 34.1 % (40.0-50.0); HGB 11.9 g/dL (13.5-17.5); MCH 30.7 pg (27.0-33.0); MCHC 34.9 % (32.0-36.0); MCV 88 fL (80-95); MPV 9.2 fL (8.0-11.0); Platelet Count 275 10^3/uL (130-400); RBC 3.87 10^6/uL (4.36-5.78); RDW 13.2 % (11.8-14.1); RDW-SD 42.6 fL; WBC 13.33 10^3/uL (4.4-10.8)
[2023-08-26 14:47] VITALS: BP 111/63; PULSE 52; RESP 16; TEMP 36.8; O2SAT 98
--- NOTE | 2023-08-26 15:12 | CHAPLAIN ---
Tyler was resting in bed when I visited. He said he was waiting for his nurse to come. He was expecting to be discharged. He asked for some eliseo destiny, and when I checked with his nurse, he said he would check in with Tyler before giving him eliseo destiny. I explained my role and offered support.
--- NOTE | 2023-08-26 16:11 | PGE_ITS ---
Date of Service Date of service: 08/26/23 Time of Service: 16:11 Assessment and Plan Assessment and plan (1) Intraoperative hemorrhage: Status: Acute Assessment and plan: no evidence of ongoing bleeding repeat h/h stable BP normalized Qualifiers: Procedure type: non-splenic (2) Appendicitis: Status: Acute Assessment and plan: resolved will D/C home advised patient to follow up in surgery clinic in one week avoid NSAIDS return to the ED in the case of dizziness, CP, SOB, Increase abdominal pain, fevers patient indicated that he understood. Qualifiers: Appendicitis type: acute appendicitis Acute appendicitis type: with localized peritonitis Appendicitis gangrene presence: without gangrene Appendicitis perforation presence: without perforation Appendicitis abscess presence: without abscess Qualified Code(s): K35.30 - Acute appendicitis with localized peritonitis, without perforation or gangrene Subjective Subjective Interval history since last seen: called to see patient because he is adamantly requesting d/c home. patient tolerated liquid diet. passing flatus. tolerating a liquid diet. recheck H/h was stable. BP has increased Exam Const General: cooperative, no acute distress and well developed Nutritional Appearance: average body habitus Orientation: alert, awake and oriented x3 Cardio Rate: regular rate GI Inspection: normal to inspection Palpation: soft Other: appropriate postop tenderness. KARTIK drainage with scant dark old blood. + bowel sounds. incisions are clean/dry/intact Objective Last Vital Signs Temp 98.2 F 08/26/23 14:47 Pulse 52 L 08/26/23 14:47 Resp 16 08/26/23 14:47 BP 111/63 08/26/23 14:47 Pulse Ox 98 08/26/23 14:47 Laboratory Results - last 24 hr 08/25/23 08/26/23 08/26/23 19:34 06:44 13:59 WBC 14.83 H 12.24 H 13.33 H RBC 4.36 3.95 L 3.87 L Hgb 13.5 12.1 L 11.9 L Hct 37.7 L 34.3 L 34.1 L MCV 87 87 88 MCH 31.0 30.6 30.7 MCHC 35.8 35.3 34.9 RDW 13.0 12.9 13.2 Plt Count 283 275 275 MPV 9.2 9.7 9.2 Time Spent with Patient Time Spent with Patient: 25-34 minutes Time was spent: preparing to see the patient(eg.review tests), obtaining and/or reviewing separately otained hiistory, referring, communicating with other health managed care manager and counseling the patient
== END 2023-08-26 17:15 | disposition home or self-care (01) ==
LOC: ER 15:35 → MS 08-26 07:45 → ER 08-26 07:46 → SUR 08-26 07:46 → MS 08-26 07:46
PROVIDERS: Admitting Provider Surgery; Emergency Provider Nurse Practitioner Family; Visit Provider Surgery
PROC: 0DTJ4ZZ Resection of Appendix, Percutaneous Endoscopic Approach (ICD-10-PCS; CPT 44970; principal; 2023-08-25 16:00)
DX: K35.30 Acute appendicitis with localized peritonitis, without perforation or gangrene (principal); F17.210 Nicotine dependence, cigarettes, uncomplicated; K91.61 Intraoperative hemorrhage and hematoma of a digestive system organ or structure complicating a digestive system procedure; Y83.8 Other surgical procedures as the cause of abnormal reaction of the patient, or of later complication, without mention of misadventure at the time of the procedure
CPT/HCPCS: 44970; 00123; 36415; 80053; 85027; 96361; 96365; 96367; 96375; 96376; 99285; J1650; 74177; 81003; 85025; 88304; G0378; J0131; J0665; J0690; J0696; J1100; J1170; J1836; J2001; J2250; J2405; J2704; J3490

== ENCOUNTER 2023-09-05 14:48 | Outpatient (CLI) | payer OTHER, SELFPAY ==
[2023-09-05 14:16] LABS: Abs Immature Grans 0.03 10^3/uL (0.0-0.06); Absolute Eosinophil Count 0.26 10^3/uL (0.0-0.7); Absolute Lymphocyte Count 3.45 10^3/uL (1.2-3.4); Absolute Monocyte Count 1.09 10^3/uL (0.1-0.8); Absolute Neutrophil Count 5.93 10^3/uL (1.2-6.7); Basophils % 0.9; Eosinophils % 2.4; HCT 42.3 % (40.0-50.0); HGB 14.7 g/dL (13.5-17.5); Immature Grans % 0.3; Lymphocytes % 31.8; MCH 30.8 pg (27.0-33.0); MCHC 34.8 % (32.0-36.0); MCV 89 fL (80-95); Neutrophils % 54.6; Platelet Count 409 10^3/uL (130-400); RBC 4.77 10^6/uL (4.36-5.78); RDW 13.1 % (11.8-14.1); RDW-SD 42.6 fL; WBC 10.86 10^3/uL (4.4-10.8)
[2023-09-05 14:28] LABS: C-Reactive Protein < 0.50 mg/dL (<or=0.5)
== END 2023-09-05 14:49 | disposition home or self-care (01) ==
PROVIDERS: Referring Provider Surgery; Visit Provider Surgery
DX: R50.9 Fever, unspecified (principal); R10.9 Unspecified abdominal pain; Z90.49 Acquired absence of other specified parts of digestive tract
CPT/HCPCS: 36415; 87493; 85025; 86140

== ENCOUNTER 2023-09-08 09:32 | Outpatient (CLI) | payer OTHER, SELFPAY ==
--- NOTE | 2023-09-08 09:30 | RT.EKG_ITS ---
APPROVED REPORT Exam: Resting ECG Reason for Exam: Bigeminy during recent lap appendectomy/smoker Patient Location: O HR:77 bpm ECG Measurements Heart Rate 77 AXIS SD 173 P 64 QRSd 97 QRS 46 QT 439 T 87 QTc 497 Conclusion Sinus rhythm...normal P axis, V-rate 50- 99 Paired ventricular premature complexes...sequence of 2 V complexes
== END 2023-09-08 09:33 | disposition home or self-care (01) ==
PROVIDERS: Visit Provider Surgery
DX: I49.8 Other specified cardiac arrhythmias (principal)
CPT/HCPCS: 93005; 93010

== ENCOUNTER 2023-09-08 15:33 | Outpatient (REF) | payer OTHER, SELFPAY ==
[2023-09-08 15:34] LABS: C Diff PCR Negative (Negative)
== END 2023-09-08 15:34 | disposition home or self-care (01) ==
LOC: LBN 15:33
PROVIDERS: Visit Provider Surgery
DX: R19.7 Diarrhea, unspecified (principal); R10.9 Unspecified abdominal pain; R50.9 Fever, unspecified; Z90.49 Acquired absence of other specified parts of digestive tract
CPT/HCPCS: 87493

== ENCOUNTER 2023-09-15 16:12 | Outpatient (CLI) | payer OTHER, SELFPAY ==
[2023-09-15 15:42] LABS: Abs Immature Grans 0.02 10^3/uL (0.0-0.06); Absolute Basophil Count 0.08 10^3/uL (0.0-0.2); Absolute Eosinophil Count 0.21 10^3/uL (0.0-0.7); Absolute Lymphocyte Count 3.21 10^3/uL (1.2-3.4); Absolute Monocyte Count 0.93 10^3/uL (0.1-0.8); Absolute Neutrophil Count 5.28 10^3/uL (1.2-6.7); Basophils % 0.8; Eosinophils % 2.2; HCT 41.8 % (40.0-50.0); HGB 15.2 g/dL (13.5-17.5); Immature Grans % 0.2; MCH 31.7 pg (27.0-33.0); MCHC 36.4 % (32.0-36.0); MCV 87 fL (80-95); MPV 9.1 fL (8.0-11.0); Monocytes % 9.6; Neutrophils % 54.2; Platelet Count 324 10^3/uL (130-400); RDW 13.2 % (11.8-14.1); RDW-SD 42.1 fL; WBC 9.73 10^3/uL (4.4-10.8)
[2023-09-15 15:53] LABS: C-Reactive Protein < 0.50 mg/dL (<or=0.5)
== END 2023-09-15 16:13 | disposition home or self-care (01) ==
LOC: LBO 16:16
PROVIDERS: Visit Provider Surgery
DX: L02.91 Cutaneous abscess, unspecified (principal)
CPT/HCPCS: 36415; 85025; 86140

== ENCOUNTER 2023-09-23 14:25 | Outpatient (RCR) | payer OTHER, SELFPAY ==
--- NOTE | 2023-09-23 14:15 | HOLTER_ITS ---
APPROVED REPORT Conclusion This is a 48-hour Holter monitor Predominant rhythm is sinus with an average heart rate of 70. Minimum 48, maximum 120 There were moderately frequent premature ventricular contractions comprising 7.1 % total There were ventricular couplets triplets and several brief runs of nonsustained ventricular tachycard ia,longest 7 beats in duration There were rare atrial premature beats There was no atrial fibrillation, no high-grade AV block, no pauses greater than 3 seconds There were no patient symptoms
== END 2023-10-02 23:59 | disposition home or self-care (01) ==
LOC: CARDOPNVT 14:25
PROVIDERS: Visit Provider Surgery
DX: I49.8 Other specified cardiac arrhythmias (principal); I47.20 Ventricular tachycardia, unspecified
CPT/HCPCS: 93225; 93226

== ENCOUNTER → 2023-11-11 00:39 | Outpatient (CLI) | payer OTHER, SELFPAY ==
--- NOTE | 2023-11-11 06:30 | DI.US_ITS ---
APPROVED REPORT EXAM: Comprehensive 2D, Doppler, and color-flow Echocardiogram Patient Location: Out-Patient Executive Creative Director: Litzy Francisco RDCS (AE) Indications: Bigeminy, multifocal pvc's Other Information Study Quality: Adequate Conclusion Normal left ventricular wall thickness and chamber size. Ejection fraction is 55 to 60%. Wall motio n is normal Normal right ventricular size and function Both atria are normal in size There is no structural or hemodynamically significant valvular disease Wall motion Left Ventricle The left ventricle is normal size. The left ventricular systolic function is normal. The left ventric ular ejection fraction is within the normal range. There is normal left ventricular wall thickness. T here is normal LV segmental wall motion. There is no ventricular septal defect visualized. LVEF is 57 %. Right Ventricle The right ventricle is normal size. The right ventricular systolic function is normal. Atria The left atrium size is normal. The right atrium size is normal. The interatrial septum is intact wit h no evidence for an atrial septal defect. Aortic Valve The aortic valve is normal in structure. Aortic valve is trileaflet. There is no aortic valvular sten osis. No aortic regurgitation is present. Mitral Valve The mitral valve is normal in structure. No evidence of mitral valve stenosis. Trace mitral regurgita tion. Tricuspid Valve The tricuspid valve is normal in structure. There is no tricuspid valve stenosis. Trace tricuspid reg urgitation. Unable to assess PA pressure. Pulmonic Valve The pulmonary valve is normal in structure. There is no pulmonic valvular stenosis. There is no pulmo hugo valvular regurgitation. Great Vessels The aortic root is normal in size. The ascending aorta is normal in size. Aortic arch is normal in ca liber. IVC is normal in size and collapses >50% with inspiration. Pericardium There is no pericardial effusion. 2D Dimensions IVSD d PLAX 0.59 cm M: 0.6-1.2 Ao Root d 2.54 cm M: 3.1 - 3.7 LVPW d PLAX 0.63 cm M: 0.6 - 1.2 Ao Asc Diam d 3.42 cm M: 2.6 - 3.4 LVID d PLAX 5.24 cm M: 4.2 - 5.8 LVDs 3.62 cm M: 2.5 - 4.0 LV EF Teichholz 58.0 % FS 30.79 % LV EDV (Teich) 131.6 mL LV ESV (Teich) 55.3 mL M-Mode TAPSE 2.84 cm (M/F) >1.7 Auto EF LV EDV A4C 122.9 mL LV EDV A2C 134.3 mL LV EDV BP 129.2 mL LV ESV A4C 54.2 mL LV ESV A2C 57.2 mL LV ESV BP 56.1 mL LVEF(%) A4C 55.9 % LVEF(%) A2C 57.4 % LVEF(%) BP 56.6 % LV SV A4C 68.7 ml LV SV A2C 77.1 ml LV SV BP 73.1 ml LV CO A4C 4.2 L/min LV CO A2C 4.8 L/min LV CO BP 4.5 L/min HR A4C 61.44 BPM HR A2C 61.63 BPM LV EDV Index (BP) LA Volume LA Length A4C 5.4 cm LA Length A2C 5.5 cm LA Area A4C s 17.73 cm2 LA Area A2C s 17.34 cm2 LA Vol A4C A-L 49.62 mL LA Vol A2C A-L 46.07 mL LA Vol Biplane A-L 48.5 mL LA Vol/BSA A4C A-L LA Vol/BSA A2C A-L LA Vol/BSA BP A-L 24.9 mL/m2 LA Vol A4C MOD 45.6 mL LA Vol A2C MOD 44.6 mL LA Vol BP MOD 45.2 mL RA Volume RA Area A4C 15.0 cm2 RA ESV A4C (A-L) 38.4mL RA Vol/BSA A4C A-L RA Length A4C 5.0 cm RA ESV A4C (MOD) 35.5mL LV Diastology MV E' medial 0.109 (>0.07 m/s) MV E Vmax 0.65 (0.4-1.3 m/s) MV E/E' MED 6.00 (<14) MV A Vmax 0.50 (0.4-1.3 m/s) MV E' lateral 0.154 (>0.1 m/s) E/A Ratio 1.3 MV E/E' LAT 4.23 (<14) MV E' Average 0.132 m/s MV E/E'(average) 4.96 Aortic Valve AoV Vmax 1.42 m/s LVOT Vmax 1.00 m/s AoV Peak Grad 8.0 mmHg LVOT Peak Grad 4.0 mmHg AoV Area (Vmax) 2.13 cm2 LVOT VTI 0.230 m AoV VTI 0.332 m LVOT Mean Grad 2.3 mmHg AoV Mean Donavan. 0.98 m/s LVOT SV 69.32 mL AoV Mean Grad 4.3 mmHg LVOT Diam s 1.95 cm AoV Area (VTI) 2.09 cm2 Velocity Ratio 0.70 Mitral Valve MV DT 212 (160-240 msec) Pulmonary Valve PV Vmax 1.14 (0.5-1.5 m/s) RVOT Vmax 0.58 m/s PV Peak Grad 5.2 mmHg RVOT Peak Gr. 1.4 mmHg PV Mean Donavan 0.91 m/s RVOT VTI 0.140 m PV Mean Grad 3.5 mmHg RVOT Mean Gr. 0.8 mmHg Tricuspid Valve TV S' 0.17 m/s
== END ==
PROVIDERS: Visit Provider Surgery
DX: I49.8 Other specified cardiac arrhythmias (principal); I49.3 Ventricular premature depolarization
CPT/HCPCS: 93306

== ENCOUNTER 2023-12-02 12:58 | Outpatient (CLI) | payer OTHER, SELFPAY ==
--- NOTE | 2023-12-02 12:45 | RT.EKG_ITS ---
APPROVED REPORT Exam: Resting ECG Reason for Exam: PVC Patient Location: O HR:61 bpm ECG Measurements Heart Rate 61 AXIS ME 165 P 56 QRSd 112 QRS 1 QT 420 T 71 QTc 423 Conclusion Sinus rhythm...normal P axis, V-rate 50- 99 Ventricular trigeminy...trigeminy string>6 w/ V complexes (-90,-1) Otherwise normal ECG
== END 2023-12-02 12:59 | disposition home or self-care (01) ==
LOC: DI.CARD 12:59
PROVIDERS: Visit Provider Internal Medicine Cardiovascular Disease
DX: I49.3 Ventricular premature depolarization (principal)
CPT/HCPCS: 93010

== ENCOUNTER → 2023-12-12 01:46 | Outpatient (CLI) | payer OTHER, SELFPAY ==
--- NOTE | 2023-12-12 06:15 | ETT_ITS ---
APPROVED REPORT Exam: Exercise Treadmill Patient Location: Out-Patient Room/Bed: Stress Nurse: Courtney Mendoza RN Ordering Provider:ALL YOUNGD, Contact Number: BMI: 27.76 Baseline Rhythm: Sinus Rhythm Comment: Frequent unifocal PVC's, couplets, bigeminy, trigeminy Indications: Multifocal PVC's, Medical History Medical History: Multifocal PVC's, bigeminy Cardiac Medications: Famotidine Allergies: Bee venom Cardiac Risk Factors: Smoker Previous Cardiac Procedures: None Pretest Chest Pain Characteristics: None Exercise History: Indeterminate Physical Disabilities: None Lung Sounds: Clear to auscultation Heart Sounds: Irregular Stress Test Details Test: Exercise stress testing was performed using a Bayron protocol. Rest Stress HR Resting HR Supine: 70 bpm Max Heart Rate (APMHR): 177 bpm Resting HR Standin bpm Target HR (85% APMHR): 150 bpm Max HR Achieved: 154 bpm % of APMHR: 87 Recovery HR: 83 bpm HR response to stress: Normal HR response to stress BP Resting BP Supine: 92/52 mmHg Resting BP Standin/62 mmHg Max BP: 164/80 mmHg Recovery BP: 110/68 mmHg BP response to stress: Normal blood pressure response to stress. ECG Resting ECG: Sinus Rhythm Ectopy: Frequent unifocal PVC's, couplets, bigeminy, trigeminy Stress ECG: Sinus Tachycardia ST Change: No significant ST segment changes noted Arrhythmia: Frequent unifocal PVC's, couplets, bigeminy, trigeminy early exercise Comment: No PVCs Stage 3 and 4 Recovery ECG: Sinus Rhythm Recovery ST Change: No significant ST segment changes noted Recovery Arrhythmia: PVCs after minute 3 recovery Clinical Reason for Termination: Target HR Achieved Stress Symptoms: General Fatigue Exercise duration: 11 min31 sec Highest Stage Reached: Stage 3: 3.4 mph at 14% grade. Exercise capacity: 13.48 METs Angina Score: None Hinojosa Treadmill Score: 11.4 Rate Pressure Product: [id number] Stress ECG Conclusion 1. Resting electrocardiogram showed frequent PVCs but was otherwise normal 2. Patient exercised on the Bayron protocol and completed a workload of 13.48 METS 3. Normal heart rate and blood pressure response to exercise. Patient achieved 87% of predicted hear t rate for age 4. There was no electrocardiographic evidence of myocardial ischemia 5. PVCs diminished then resolved as exercise continued, returned after minute 3 of recovery Hinojosa Treadmill Score is 11.4 which is Low risk. Stress Test Summary STAGE Time (mins) Speed (mph) Grade (%) HR BP SpO2 SYMPTOMS METS Supine 70 92/52 97% Standing 69 124/62 1 3 1.7 10 96 148/82 4.5 2 6 2.5 12 100 7 3 9 3.4 14 114 10 4 12 4.2 16 150 13 1 min recovery 129 164/80 98% 3 min recovery 96 162/78 6 min recovery 88 142/62 98% 9 min recovery 83 110/68 96% Patient denied dizziness, chest pain or pressure, and denied SOB. Left ambulatory in no apperant dist ress aften completeion of test.
== END ==
PROVIDERS: Visit Provider Internal Medicine Cardiovascular Disease
DX: I49.3 Ventricular premature depolarization (principal)
CPT/HCPCS: 93017